=== PATIENT | male | born 1950 | race Caucasian/White ===

== ENCOUNTER → 2017-01-03 | Day surgery (SDC) | payer OTHER, MEDICARE ==
[2016-12-21 11:39] VITALS: Ht 182.9 cm; Wt 134.1 kg
[~2017-01-03] VITALS: Ht 182.9 cm; Wt 134.1 kg
[~2017-01-03] MED LIST: AMLO-110 PO; APIX1TAB3 PO; ASPCH81X PO; ATOR-24 PO; B COCAP10 PO; CITA10TA8 PO; CITA20TA4 PO; CITA20TA9 PO; COEN1CAP7 PO; FERR1TAB13 PO; LIDOCAINE HCL 2% 2 ML VIAL (20MG/ML) ONE; MULT-845 PO; MULTCAP7 PO; NTRGSL/4 UT; OMEG12006 PO; PLAVIX75 PO; PROPOFOL IV EMULSION 10 MG/ML 20 ML VIAL IV ONE; PSYL48.59 PO; SAW PALMETTO PO; [UNRECOGNIZED DRUG - OTHER] PO
--- NOTE | 2017-01-03 13:05 | Endo History and Physical ---
History & Physical Date of Service: Jan 03, 2017. Chief Complaint: 2yr f/u colon CA Referring Physician: DR. ROSE History of Present Illness For flex sig Past Surgical History Hx Cardiac Surgery: Yes (CARDIAC ABLATION, 3 HEART CATH-3 STENTS PLACED) Hx Internal Defibrillator: No Hx Pacemaker: No Hx Abdominal Surgery: Yes (VENTRAL HERNIA REPAIR, TIFFANY) Hx of Implantable Prosthesis: No Hx Post-Op Nausea and Vomiting: No Hx Cancer Surgery: Yes (COLON RESECTION) Hx Thoracic Surgery: No Hx Orthopedic: Yes (RT/LEFT CTR, RT/LEFT ULNAR NERVE SX, RT RCR, LEFT KNEE SX) Hx Urinary Tract Surgery: No Family History Colon CA, Polyp Social History Smoking Status: Former Smoker Hx Substance Use: No Hx Alcohol Use: Yes (RARELY) Allergies Coded Allergies: Penicillins (Verified Allergy, Unknown, FACIAL SWELLING, 12/21/16) Sulfa Antibiotics (Verified Allergy, Unknown, FACIAL SWELLING, 12/21/16) Current Medications Reported Home Medications Medications Dose Route/Sig Max Daily Dose Days Date Category Metamucil (Psyllium) 48.57 % Pow 1 Dose PO BID 12/21/16 Reported Super B With C (B Complex W/ C) 1 Cap Cap 0.5 Cap PO BID 12/21/16 Reported [Juice Gummies] 2 Dose PO BID 12/21/16 Reported Eye Vitamins (Multiple Vitamins W/ Minerals) 1 Cap Cap 1 Cap PO QAM 12/21/16 Reported [Saw [place]] 320 Mg PO QAM 12/21/16 Reported [place] 3 ([place]-3 Fatty Acids) 1 Cap Cap 1,000 Mg PO QAM 12/21/16 Reported Nitrostat (Nitroglycerin) 0.4 Mg Tab 0.4 Mg UT PRN 12/21/16 Reported Centrum Silver Adult 50+ (Multiple Vitamins W/ Minerals) 1 Tab Tab 0.5 Tab PO BID 12/21/16 Reported Coq10 (Coenzyme Q10 (Ubidecarenone)) 200 Mg Cap 1 Cap PO QAM 12/21/16 Reported Plavix (Clopidogrel Bisulfate) 75 Mg Tab 1 Tab PO QAM 90 12/21/16 Reported Citalopram Hydrobromide 20 Mg Tab 30 Mg PO QPM 90 12/21/16 Reported Lipitor (Atorvastatin Calcium) 40 Mg Tab 60 Mg PO QPM 12/21/16 Reported Aspirin Chewable (Aspirin) 81 Mg Chew 81 Mg PO QAM 12/21/16 Reported Eliquis (Apixaban) 5 Mg Tab 5 Mg PO BID 12/21/16 Reported Norvasc (Amlodipine Besylate) 5 Mg Tab 5 Mg PO QAM 12/21/16 Reported Vital Signs Weight (Kilograms): 134.09 Height (Feet): 6 Height (Inches): 0 Date Time Temp Pulse Resp B/P Pulse Ox O2 Delivery O2 Flow Rate FiO2 01/03/17 12:47 36.8 52 20 156/75 95 Room Air Physical Exam General Appearance: WD/WN Respiratory/Chest: Respiratory effort: no dyspnea Cardiovascular: Apical Impulse: pertinent finding (s/p stent) Abdomen: Bowel Sounds: pertinent finding (scars) Assessment and Plan Hx colon cancer for flex sig
--- NOTE | 2017-01-03 13:30 | Discharge Instructions ---
Endoscopy Patient Instructions Date / Procedure(s) Performed Jan 03, 2017. Flex Sig Allergy Information Coded Allergies: Penicillins (Verified Allergy, Unknown, FACIAL SWELLING, 12/21/16) Sulfa Antibiotics (Verified Allergy, Unknown, FACIAL SWELLING, 12/21/16) Discharge Date / Findings Jan 03, 2017. rectal polyps, granulation tissue at the anastomosis Medication Instructions Stopped Medication(s): plavix eliquis aspirin Restart Stopped Medication(s): resume meds Reported Home Medications Medications Dose Route/Sig Max Daily Dose Days Date Category Metamucil (Psyllium) 48.57 % Pow 1 Dose PO BID 12/21/16 Reported Super B With C (B Complex W/ C) 1 Cap Cap 0.5 Cap PO BID 12/21/16 Reported [Juice Gummies] 2 Dose PO BID 12/21/16 Reported Eye Vitamins (Multiple Vitamins W/ Minerals) 1 Cap Cap 1 Cap PO QAM 12/21/16 Reported [Saw [place]] 320 Mg PO QAM 12/21/16 Reported [place] 3 ([place]-3 Fatty Acids) 1 Cap Cap 1,000 Mg PO QAM 12/21/16 Reported Nitrostat (Nitroglycerin) 0.4 Mg Tab 0.4 Mg UT PRN 12/21/16 Reported Centrum Silver Adult 50+ (Multiple Vitamins W/ Minerals) 1 Tab Tab 0.5 Tab PO BID 12/21/16 Reported Coq10 (Coenzyme Q10 (Ubidecarenone)) 200 Mg Cap 1 Cap PO QAM 12/21/16 Reported Plavix (Clopidogrel Bisulfate) 75 Mg Tab 1 Tab PO QAM 90 12/21/16 Reported Citalopram Hydrobromide 20 Mg Tab 30 Mg PO QPM 90 12/21/16 Reported Lipitor (Atorvastatin Calcium) 40 Mg Tab 60 Mg PO QPM 12/21/16 Reported Aspirin Chewable (Aspirin) 81 Mg Chew 81 Mg PO QAM 12/21/16 Reported Eliquis (Apixaban) 5 Mg Tab 5 Mg PO BID 12/21/16 Reported Norvasc (Amlodipine Besylate) 5 Mg Tab 5 Mg PO QAM 12/21/16 Reported Provider Instructions Activity Restrictions - No exercising or heavy lifting for 24 hours. - Do not drink alcohol the day of the procedure. - Do not drive a car or operate machinery until the day after the procedure. - Do not make any important decisions or sign important papers in 24 hours after the procedure. Following Day: - Return to full activity which may include returning to work/school. Diet Start your diet with liquids and light foods (jello, soup, juice, toast). Then eat your usual diet if not nauseated. Treatment For Common After Affects For mild abdominal pain, bloating, or excessive gas: - Rest - Eat lightly - Lie on right side Follow-Up Information Follow-up with DR. ROSE as scheduled Anesthesia Information What You Should Know You have had a procedure that required some medicine to reduce anxiety and discomfort. This treatment is called moderate sedation. After receiving the treatment, you may be sleepy, but you will be able to breathe on your own. The effects of the treatment may last for several hours. Follow these instructions along with Activity/Diet recommendations noted above: * Do NOT do anything where dizziness or clumsiness would be dangerous. * Rest quietly at home today, then you can be up and about tomorrow. * Have a responsible person stay with you the rest of today. * You may have had an I.V. today. If so, you may take the dressing off later today. Recommendations Call your doctor if: * Trouble breathing * Continuous vomiting for more than 24 hours * Temperature above 101 degrees * Severe abdominal pain or bloating * Pain not relieved by pain medicine ordered * There is increased drainage or redness from any incision * A large amount of rectal bleeding greater than 2-3 tablespoons. (If you had a polyp/s removed or have hemorrhoids, a small amount of blood - from the rectum is to be expected.) * You have any unanswered questions or concerns. IN THE EVENT OF A SERIOUS EMERGENCY, GO TO THE NEAREST EMERGENCY ROOM Your discharge instructions were prepared by provider Misael Rosado. Patient Instructions Signature Page Georges Estuardo Patient (or Guardian) Signature/Date: I have read and understand the instructions given to me by my caregivers. Caregiver/RN/Doctor Signature/Date: The above-named patient and/or guardian has received patient instructions on this date. + Original Patient Signature Page (only) stays with chart. Please make copy for patient.
--- NOTE | 2017-01-03 13:43 | GI REPORT ---
Procedure Date: 01/03/2017 12:50 PM Procedure: Colonoscopy Indications: Personal history of malignant neoplasm of the colon, Personal history of colonic polyps Medicines: Propofol total dose 230 mg IV, Lidocaine 40 mg IV Complications: No immediate complications. Estimated Blood Loss: Estimated blood loss: none. Procedure: Pre-Anesthesia Assessment: - Prior to the procedure, a History and Physical was performed, and patient medications, allergies and sensitivities were reviewed. The patient's tolerance of previous anesthesia was reviewed. - The risks and benefits of the procedure and the sedation options and risks were discussed with the patient. All questions were answered and informed consent was obtained. After I obtained informed consent, the scope was passed under direct vision. Throughout the procedure, the patient's blood pressure, pulse, and oxygen saturations were monitored continuously. The scope was introduced through the anus and advanced to the ileocolonic anastomosis. The colonoscopy was performed without difficulty. The patient tolerated the procedure well. The quality of the bowel preparation was excellent. Findings: A 4 mm polyp was found in the rectum. The polyp was sessile. The polyp was removed with a hot snare. Resection and retrieval were complete. Estimated blood loss: none. A 5 mm polyp was found in the rectum. The polyp was sessile. The polyp was removed with a hot snare. Resection and retrieval were complete. Estimated blood loss: none. A 5 mm polyp was found in the rectum. The polyp was sessile. The polyp was removed with a hot snare. Resection and retrieval were complete. Estimated blood loss: none. Two sessile polyps were found in the rectum. The polyps were 4 to 5 mm in size. These polyps were removed with a hot snare. Resection and retrieval were complete. Estimated blood loss: none. A 8 mm polyp was found in the rectum. The polyp was sessile. The polyp was removed with a hot snare. Resection and retrieval were complete. Estimated blood loss: none. A 3 mm polypoid lesion consistant with granulation tissue was found at the anastomosis. The lesion was semi-sessile. No bleeding was present. Impression: - One 4 mm polyp in the rectum, removed with a hot snare. Resected and retrieved. - One 5 mm polyp in the rectum, removed with a hot snare. Resected and retrieved. - One 5 mm polyp in the rectum, removed with a hot snare. Resected and retrieved. - Two 4 to 5 mm polyps in the rectum, removed with a hot snare. Resected and retrieved. - One 8 mm polyp in the rectum, removed with a hot snare. Resected and retrieved. - Benign polypoid lesion at the colonic anastomosis. Recommendation: - Discharge patient to home (ambulatory). - Continue present medications. - Await pathology results. - Return to primary care physician PRN. Misael Rosado M.D. Misael Rosado MD 01/03/2017 1:43:11 PM This report has been signed electronically. Note Initiated On: 01/03/2017 12:50 PM I attest to the content of the Intraoperative Record and orders documented therein, exceptions below
--- NOTE | 2017-01-03 13:53 | Anesthesiology Progress Note ---
Anesthesia Post Op Note Date & Time Jan 03, 2017 at 13:53 Vital Signs Pain Intensity: 0 Vital Signs Past 12 Hours Date Time Temp Pulse Resp B/P Pulse Ox O2 Delivery O2 Flow Rate FiO2 01/03/17 13:50 49 18 147/75 97 Room Air 01/03/17 13:35 52 16 157/76 97 Room Air 01/03/17 12:47 36.8 52 20 156/75 95 Room Air Notes Mental Status: alert / awake / arousable, participated in evaluation Pt Amnestic to Procedure: Yes Nausea / Vomiting: adequately controlled Pain: adequately controlled Airway Patency, RR, SpO2: stable & adequate BP & HR: stable & adequate Hydration State: stable & adequate Anesthetic Complications: no major complications apparent Pt doing well.
[2017-01-03 14:05] VITALS: BP 160/90; PULSE 50; O2SAT 97
== END | disposition home or self-care (01) ==
LOC: C.GI 12:12
PROVIDERS: ATTEND Internal Medicine Gastroenterology
DX: D12.8 Benign neoplasm of rectum (principal); Z85.00 Personal history of malignant neoplasm of unspecified digestive organ; Z80.0 Family history of malignant neoplasm of digestive organs; Z87.891 Personal history of nicotine dependence; Z86.010 Personal history of colon polyps

== ENCOUNTER → 2017-01-12 | Day surgery (SDC) | payer OTHER, MEDICARE ==
[2017-01-11 11:07] VITALS: BMI 40.0
[~2017-01-12] VITALS: Ht 182.9 cm; Wt 134.1 kg
[2017-01-12 14:40] VITALS: Ht 182.9 cm; Wt 134.1 kg
[2017-01-12 14:45] VITALS: TEMP 36.5
--- NOTE | 2017-01-12 14:47 | Endo History and Physical ---
History & Physical Date of Service: Jan 12, 2017. Chief Complaint: Blood in stools Referring Physician: no physician assigned History of Present Illness For Flex sig Past Surgical History Hx Cardiac Surgery: Yes (CARDIAC ABLATION, 3 HEART CATH-3 STENTS PLACED) Hx Internal Defibrillator: No Hx Pacemaker: No Hx Abdominal Surgery: Yes (VENTRAL HERNIA REPAIR, TIFFANY) Hx Post-Op Nausea and Vomiting: No Hx Cancer Surgery: Yes (COLON RESECTION) Hx Thoracic Surgery: No Hx Orthopedic: Yes (RT/LEFT CTR, RT/LEFT ULNAR NERVE SX, RT RCR, LEFT KNEE SX) Hx Urinary Tract Surgery: No Family History Colon CA, Polyp Social History Smoking Status: Former Smoker Hx Substance Use: No Hx Alcohol Use: Yes (RARELY) Allergies Coded Allergies: Penicillins (Verified Allergy, Unknown, FACIAL SWELLING, 01/11/17) Sulfa Antibiotics (Verified Allergy, Unknown, FACIAL SWELLING, 01/11/17) Current Medications Reported Home Medications Medications Dose Route/Sig Max Daily Dose Days Date Category Metamucil (Psyllium) 48.57 % Pow 1 Dose PO BID 12/21/16 Reported Super B With C (B Complex W/ C) 1 Cap Cap 0.5 Cap PO BID 12/21/16 Reported [Juice Gummies] 2 Dose PO BID 12/21/16 Reported Eye Vitamins (Multiple Vitamins W/ Minerals) 1 Cap Cap 1 Cap PO QAM 12/21/16 Reported [Saw [place]] 320 Mg PO QAM 12/21/16 Reported [place] 3 ([place]-3 Fatty Acids) 1 Cap Cap 1,000 Mg PO QAM 12/21/16 Reported Nitrostat (Nitroglycerin) 0.4 Mg Tab 0.4 Mg UT PRN 12/21/16 Reported Centrum Silver Adult 50+ (Multiple Vitamins W/ Minerals) 1 Tab Tab 0.5 Tab PO BID 12/21/16 Reported Coq10 (Coenzyme Q10 (Ubidecarenone)) 200 Mg Cap 1 Cap PO QAM 12/21/16 Reported Plavix (Clopidogrel Bisulfate) 75 Mg Tab 1 Tab PO QAM 90 12/21/16 Reported Citalopram Hydrobromide 20 Mg Tab 30 Mg PO QPM 90 12/21/16 Reported Lipitor (Atorvastatin Calcium) 40 Mg Tab 60 Mg PO QPM 12/21/16 Reported Aspirin Chewable (Aspirin) 81 Mg Chew 81 Mg PO QAM 12/21/16 Reported Eliquis (Apixaban) 5 Mg Tab 5 Mg PO BID 12/21/16 Reported Norvasc (Amlodipine Besylate) 5 Mg Tab 5 Mg PO QAM 12/21/16 Reported Vital Signs Weight (Kilograms): 134.09 Height (Feet): 6 Height (Inches): 0 Physical Exam General Appearance: WD/WN Respiratory/Chest: Respiratory effort: no dyspnea Cardiovascular: Heart Auscultation: RRR Abdomen: Inspection & Palpation: soft Assessment and Plan post polypectomy bleed for flex sig
--- NOTE | 2017-01-12 15:15 | Discharge Instructions ---
Endoscopy Patient Instructions Date / Procedure(s) Performed Jan 12, 2017. Colonoscopy, Flex Sig Allergy Information Coded Allergies: Penicillins (Verified Allergy, Unknown, FACIAL SWELLING, 01/11/17) Sulfa Antibiotics (Verified Allergy, Unknown, FACIAL SWELLING, 01/11/17) Discharge Date / Findings Jan 12, 2017. polyp sites clipped Medication Instructions Restart Stopped Medication(s): resume meds Reported Home Medications Medications Dose Route/Sig Max Daily Dose Days Date Category Metamucil (Psyllium) 48.57 % Pow 1 Dose PO BID 12/21/16 Reported Super B With C (B Complex W/ C) 1 Cap Cap 0.5 Cap PO BID 12/21/16 Reported [Juice Gummies] 2 Dose PO BID 12/21/16 Reported Eye Vitamins (Multiple Vitamins W/ Minerals) 1 Cap Cap 1 Cap PO QAM 12/21/16 Reported [Saw [place]] 320 Mg PO QAM 12/21/16 Reported [place] 3 ([place]-3 Fatty Acids) 1 Cap Cap 1,000 Mg PO QAM 12/21/16 Reported Nitrostat (Nitroglycerin) 0.4 Mg Tab 0.4 Mg UT PRN 12/21/16 Reported Centrum Silver Adult 50+ (Multiple Vitamins W/ Minerals) 1 Tab Tab 0.5 Tab PO BID 12/21/16 Reported Coq10 (Coenzyme Q10 (Ubidecarenone)) 200 Mg Cap 1 Cap PO QAM 12/21/16 Reported Plavix (Clopidogrel Bisulfate) 75 Mg Tab 1 Tab PO QAM 90 12/21/16 Reported Citalopram Hydrobromide 20 Mg Tab 30 Mg PO QPM 90 12/21/16 Reported Lipitor (Atorvastatin Calcium) 40 Mg Tab 60 Mg PO QPM 12/21/16 Reported Aspirin Chewable (Aspirin) 81 Mg Chew 81 Mg PO QAM 12/21/16 Reported Eliquis (Apixaban) 5 Mg Tab 5 Mg PO BID 12/21/16 Reported Norvasc (Amlodipine Besylate) 5 Mg Tab 5 Mg PO QAM 12/21/16 Reported Provider Instructions Activity Restrictions - No exercising or heavy lifting for 24 hours. - Do not drink alcohol the day of the procedure. - Do not drive a car or operate machinery until the day after the procedure. - Do not make any important decisions or sign important papers in 24 hours after the procedure. Following Day: - Return to full activity which may include returning to work/school. Diet Start your diet with liquids and light foods (jello, soup, juice, toast). Then eat your usual diet if not nauseated. Treatment For Common After Affects For mild abdominal pain, bloating, or excessive gas: - Rest - Eat lightly - Lie on right side Follow-Up Information Follow-up with no physician assigned as scheduled Anesthesia Information What You Should Know You have had a procedure that required some medicine to reduce anxiety and discomfort. This treatment is called moderate sedation. After receiving the treatment, you may be sleepy, but you will be able to breathe on your own. The effects of the treatment may last for several hours. Follow these instructions along with Activity/Diet recommendations noted above: * Do NOT do anything where dizziness or clumsiness would be dangerous. * Rest quietly at home today, then you can be up and about tomorrow. * Have a responsible person stay with you the rest of today. * You may have had an I.V. today. If so, you may take the dressing off later today. Recommendations Call your doctor if: * Trouble breathing * Continuous vomiting for more than 24 hours * Temperature above 101 degrees * Severe abdominal pain or bloating * Pain not relieved by pain medicine ordered * There is increased drainage or redness from any incision * A large amount of rectal bleeding greater than 2-3 tablespoons. (If you had a polyp/s removed or have hemorrhoids, a small amount of blood - from the rectum is to be expected.) * You have any unanswered questions or concerns. IN THE EVENT OF A SERIOUS EMERGENCY, GO TO THE NEAREST EMERGENCY ROOM Your discharge instructions were prepared by provider Misael Rosado. Patient Instructions Signature Page Georges Marte Patient (or Guardian) Signature/Date: I have read and understand the instructions given to me by my caregivers. Caregiver/RN/Doctor Signature/Date: The above-named patient and/or guardian has received patient instructions on this date. + Original Patient Signature Page (only) stays with chart. Please make copy for patient.
--- NOTE | 2017-01-12 15:23 | GI REPORT ---
Procedure Date: 01/12/2017 2:57 PM Procedure: Colonoscopy Indications: Rectal bleeding, Treatment of bleeding from polypectomy site Medicines: Propofol total dose 340 mg IV, Lidocaine 40 mg IV Complications: No immediate complications. Estimated Blood Loss: Estimated blood loss: none. Procedure: Pre-Anesthesia Assessment: - Prior to the procedure, a History and Physical was performed, and patient medications, allergies and sensitivities were reviewed. The patient's tolerance of previous anesthesia was reviewed. - The risks and benefits of the procedure and the sedation options and risks were discussed with the patient. All questions were answered and informed consent was obtained. After I obtained informed consent, the scope was passed under direct vision. Throughout the procedure, the patient's blood pressure, pulse, and oxygen saturations were monitored continuously. The scope was introduced through the anus and advanced to the ileocolonic anastomosis. The colonoscopy was performed without difficulty. The patient tolerated the procedure well. The quality of the bowel preparation was excellent. Findings: Five five mm ulcers were found in the rectum. No bleeding was present. No stigmata of recent bleeding were seen. To prevent bleeding after the polypectomy, five hemostatic clips were successfully placed (MR conditional). There was no bleeding during, and at the end, of the procedure. Estimated blood loss: none. There was evidence of a prior end-to-side ileo-colonic anastomosis in the recto-sigmoid colon. This was patent. The anastomosis was traversed. Impression: - Five ulcers in the rectum. Clips (MR conditional) were placed. - Patent end-to-side ileo-colonic anastomosis. - No specimens collected. Recommendation: - Discharge patient to home (ambulatory). - Continue present medications. - Return to primary care physician PRN. - Repeat colonoscopy in 1 year for surveillance. Misael Rosado M.D. Misael Rosado MD 01/12/2017 3:22:23 PM This report has been signed electronically. Note Initiated On: 01/12/2017 2:57 PM I attest to the content of the Intraoperative Record and orders documented therein, exceptions below
--- NOTE | 2017-01-12 15:33 | Anesthesiology Progress Note ---
Anesthesia Post Op Note Date & Time Jan 12, 2017 at 15:32 Vital Signs Pain Intensity: 0 Vital Signs Past 12 Hours Date Time Temp Pulse Resp B/P Pulse Ox O2 Delivery O2 Flow Rate FiO2 01/12/17 15:19 92 16 105/67 94 Room Air 01/12/17 14:45 36.5 53 18 145/63 18 Room Air Notes Mental Status: alert / awake / arousable, participated in evaluation Pt Amnestic to Procedure: Yes Nausea / Vomiting: adequately controlled Pain: adequately controlled Airway Patency, RR, SpO2: stable & adequate BP & HR: stable & adequate Hydration State: stable & adequate Anesthetic Complications: no major complications apparent
[2017-01-12 15:49] VITALS: BP 146/77; PULSE 50; O2SAT 97
== END | disposition home or self-care (01) ==
LOC: C.GI 13:54
PROVIDERS: ATTEND Internal Medicine Gastroenterology
DX: K62.6 Ulcer of anus and rectum (principal); K62.5 Hemorrhage of anus and rectum; Z87.891 Personal history of nicotine dependence; Z80.0 Family history of malignant neoplasm of digestive organs

== ENCOUNTER → 2017-04-11 | Day surgery (SDC) | payer OTHER, MEDICARE ==
[2017-04-01 08:33] VITALS: BMI 41.0
[~2017-04-11] VITALS: Ht 182.9 cm; Wt 136.4 kg
[~2017-04-11] MED LIST changes: -CITA20TA4 PO; +MIDAZOLAM HCL 1 MG/ML 2ML VIAL ONE
--- NOTE | 2017-04-11 14:13 | Endo History and Physical ---
History & Physical Date of Service: Apr 11, 2017. Chief Complaint: hx of polyps Referring Physician: Dr. Marie History of Present Illness For flexible sigmoidoscopy Past Surgical History Hx Cardiac Surgery: Yes (CARDIAC ABLATION, 3 HEART CATH-3 STENTS PLACED-LAST ONE 05/2016) Hx Internal Defibrillator: No Hx Pacemaker: No Hx Abdominal Surgery: Yes (VENTRAL HERNIA REPAIR, TFIFANY) Hx of Implantable Prosthesis: No Hx Post-Op Nausea and Vomiting: No Hx Cancer Surgery: Yes (COLON RESECTION) Hx Thoracic Surgery: No Hx Orthopedic: Yes (RT/LEFT CTR, RT/LEFT ULNAR NERVE SX, RT RCR, LEFT KNEE SX) Hx Urinary Tract Surgery: No Family History Colon CA, Polyp Social History Smoking Status: Former Smoker Hx Substance Use: No Hx Alcohol Use: Yes (RARELY) Allergies Coded Allergies: Penicillins (Verified Allergy, Unknown, FACIAL SWELLING, 04/01/17) Sulfa Antibiotics (Verified Allergy, Unknown, FACIAL SWELLING, 04/01/17) Current Medications Reported Home Medications Medications Dose Route/Sig Max Daily Dose Days Date Category Celexa (Citalopram Hydrobromide) 20 Mg Tab 20 Mg PO QPM 04/01/17 Reported Celexa (Citalopram Hydrobromide) 10 Mg Tab 10 Mg PO QAM 04/01/17 Reported Kp Ferrous Sulfate (Ferrous Sulfate) 325 Mg Tab 1 Tab PO QPM 30 04/01/17 Reported Metamucil (Psyllium) 48.57 % Pow 1 Dose PO BID 12/21/16 Reported Super B With C (B Complex W/ C) 1 Cap Cap 0.5 Cap PO BID 12/21/16 Reported [Juice Gummies] 2 Dose PO BID 12/21/16 Reported Eye Vitamins (Multiple Vitamins W/ Minerals) 1 Cap Cap 1 Cap PO QAM 12/21/16 Reported [Saw [place]] 320 Mg PO QAM 12/21/16 Reported [place] 3 ([place]-3 Fatty Acids) 1 Cap Cap 1,000 Mg PO QAM 12/21/16 Reported Nitrostat (Nitroglycerin) 0.4 Mg Tab 0.4 Mg UT PRN 12/21/16 Reported Centrum Silver Adult 50+ (Multiple Vitamins W/ Minerals) 1 Tab Tab 0.5 Tab PO BID 12/21/16 Reported Coq10 (Coenzyme Q10 (Ubidecarenone)) 200 Mg Cap 1 Cap PO QAM 12/21/16 Reported Plavix (Clopidogrel Bisulfate) 75 Mg Tab 1 Tab PO QAM 90 12/21/16 Reported Lipitor (Atorvastatin Calcium) 40 Mg Tab 60 Mg PO QPM 12/21/16 Reported Aspirin Chewable (Aspirin) 81 Mg Chew 81 Mg PO QAM 12/21/16 Reported Eliquis (Apixaban) 5 Mg Tab 5 Mg PO BID 12/21/16 Reported Norvasc (Amlodipine Besylate) 5 Mg Tab 5 Mg PO QAM 12/21/16 Reported Vital Signs Weight (Kilograms): 136.36 Height (Feet): 6 Height (Inches): 0 Physical Exam General Appearance: WD/WN Respiratory/Chest: Respiratory effort: no dyspnea Cardiovascular: Heart Auscultation: RRR Abdomen: Bowel Sounds: pertinent finding (scar) Inspection & Palpation: soft Assessment and Plan hx of polyps, heme positive stool for flex sig
[2017-04-11 14:16] VITALS: Ht 182.9 cm; Wt 136.4 kg
[2017-04-11 14:24] VITALS: TEMP 36.8
--- NOTE | 2017-04-11 14:53 | Discharge Instructions ---
Endoscopy Patient Instructions Date / Procedure(s) Performed Apr 11, 2017. Flex Sig Allergy Information Coded Allergies: Penicillins (Verified Allergy, Unknown, FACIAL SWELLING, 04/01/17) Sulfa Antibiotics (Verified Allergy, Unknown, FACIAL SWELLING, 04/01/17) Discharge Date / Findings Apr 11, 2017. Granulation tissue cauterized, retained hemoclips Medication Instructions Restart Stopped Medication(s): resume meds Reported Home Medications Medications Dose Route/Sig Max Daily Dose Days Date Category Celexa (Citalopram Hydrobromide) 20 Mg Tab 20 Mg PO QPM 04/01/17 Reported Celexa (Citalopram Hydrobromide) 10 Mg Tab 10 Mg PO QAM 04/01/17 Reported Kp Ferrous Sulfate (Ferrous Sulfate) 325 Mg Tab 1 Tab PO QPM 30 04/01/17 Reported Metamucil (Psyllium) 48.57 % Pow 1 Dose PO BID 12/21/16 Reported Super B With C (B Complex W/ C) 1 Cap Cap 0.5 Cap PO BID 12/21/16 Reported [Juice Gummies] 2 Dose PO BID 12/21/16 Reported Eye Vitamins (Multiple Vitamins W/ Minerals) 1 Cap Cap 1 Cap PO QAM 12/21/16 Reported [Saw Doucette] 320 Mg PO QAM 12/21/16 Reported [place] 3 ([place]-3 Fatty Acids) 1 Cap Cap 1,000 Mg PO QAM 12/21/16 Reported Nitrostat (Nitroglycerin) 0.4 Mg Tab 0.4 Mg UT PRN 12/21/16 Reported Centrum Silver Adult 50+ (Multiple Vitamins W/ Minerals) 1 Tab Tab 0.5 Tab PO BID 12/21/16 Reported Coq10 (Coenzyme Q10 (Ubidecarenone)) 200 Mg Cap 1 Cap PO QAM 12/21/16 Reported Plavix (Clopidogrel Bisulfate) 75 Mg Tab 1 Tab PO QAM 90 12/21/16 Reported Lipitor (Atorvastatin Calcium) 40 Mg Tab 60 Mg PO QPM 12/21/16 Reported Aspirin Chewable (Aspirin) 81 Mg Chew 81 Mg PO QAM 12/21/16 Reported Eliquis (Apixaban) 5 Mg Tab 5 Mg PO BID 12/21/16 Reported Norvasc (Amlodipine Besylate) 5 Mg Tab 5 Mg PO QAM 12/21/16 Reported Provider Instructions Activity Restrictions - No exercising or heavy lifting for 24 hours. - Do not drink alcohol the day of the procedure. - Do not drive a car or operate machinery until the day after the procedure. - Do not make any important decisions or sign important papers in 24 hours after the procedure. Following Day: - Return to full activity which may include returning to work/school. Diet Start your diet with liquids and light foods (jello, soup, juice, toast). Then eat your usual diet if not nauseated. Treatment For Common After Affects For mild abdominal pain, bloating, or excessive gas: - Rest - Eat lightly - Lie on right side Follow-Up Information Follow-up with as scheduled Anesthesia Information What You Should Know You have had a procedure that required some medicine to reduce anxiety and discomfort. This treatment is called moderate sedation. After receiving the treatment, you may be sleepy, but you will be able to breathe on your own. The effects of the treatment may last for several hours. Follow these instructions along with Activity/Diet recommendations noted above: * Do NOT do anything where dizziness or clumsiness would be dangerous. * Rest quietly at home today, then you can be up and about tomorrow. * Have a responsible person stay with you the rest of today. * You may have had an I.V. today. If so, you may take the dressing off later today. Recommendations Call your doctor if: * Trouble breathing * Continuous vomiting for more than 24 hours * Temperature above 101 degrees * Severe abdominal pain or bloating * Pain not relieved by pain medicine ordered * There is increased drainage or redness from any incision * A large amount of rectal bleeding greater than 2-3 tablespoons. (If you had a polyp/s removed or have hemorrhoids, a small amount of blood - from the rectum is to be expected.) * You have any unanswered questions or concerns. IN THE EVENT OF A SERIOUS EMERGENCY, GO TO THE NEAREST EMERGENCY ROOM Your discharge instructions were prepared by provider Misael Rosado. Patient Instructions Signature Page Georges Estuardo Patient (or Guardian) Signature/Date: I have read and understand the instructions given to me by my caregivers. Caregiver/RN/Doctor Signature/Date: The above-named patient and/or guardian has received patient instructions on this date. + Original Patient Signature Page (only) stays with chart. Please make copy for patient.
--- NOTE | 2017-04-11 15:01 | GI REPORT ---
Procedure Date: 04/11/2017 2:14 PM Procedure: Flexible Sigmoidoscopy Indications: High risk colon cancer surveillance: Personal history of colonic polyps, Incidental - Gastrointestinal occult blood loss Medicines: Midazolam 2 mg IV, Propofol total dose 180 mg IV, Lidocaine 40 mg IV Complications: No immediate complications. Procedure: Pre-Anesthesia Assessment: - Prior to the procedure, a History and Physical was performed, and patient medications, allergies and sensitivities were reviewed. The patient's tolerance of previous anesthesia was reviewed. - The risks and benefits of the procedure and the sedation options and risks were discussed with the patient. All questions were answered and informed consent was obtained. After obtaining informed consent, the endoscope was passed under direct vision. Throughout the procedure, the patient's blood pressure, pulse, and oxygen saturations were monitored continuously. The scope was introduced through the anus and advanced to the ileo-rectal anastomosis. The flexible sigmoidoscopy was accomplished without difficulty. The patient tolerated the procedure well. The quality of the bowel preparation was good. Findings: There was evidence of a prior [id number] ileo-colonic anastomosis in the recto-sigmoid colon. This was patent and was characterized by ulceration. The anastomosis was traversed. Coagulation for bleeding prevention using argon plasma at 0.3 liters/minute and 20 sorensen was successful. Estimated blood loss: none. Two retained hemoclips. Recommendation: - Discharge patient to home (ambulatory). - Continue present medications. - Return to primary care physician PRN. Misael Rosado M.D. Misael Rosado MD 04/11/2017 3:00:04 PM This report has been signed electronically. Note Initiated On: 04/11/2017 2:14 PM I attest to the content of the Intraoperative Record and orders documented therein, exceptions below
--- NOTE | 2017-04-11 15:19 | Anesthesiology Progress Note ---
Anesthesia Post Op Note Date & Time Apr 11, 2017 at 15:18 Vital Signs Pain Intensity: 0 Vital Signs Past 12 Hours Date Time Temp Pulse Resp B/P (MAP) Pulse Ox O2 Delivery O2 Flow Rate FiO2 04/11/17 15:12 58 18 133/58 (83) 97 Room Air 04/11/17 14:57 59 12 140/61 (87) 97 Room Air 04/11/17 14:24 36.8 63 18 147/54 (85) 95 Room Air Notes Mental Status: alert / awake / arousable, participated in evaluation Pt Amnestic to Procedure: Yes Nausea / Vomiting: adequately controlled Pain: adequately controlled Airway Patency, RR, SpO2: stable & adequate BP & HR: stable & adequate Hydration State: stable & adequate Anesthetic Complications: no major complications apparent
[2017-04-11 15:27] VITALS: BP 150/59; PULSE 52; O2SAT 97
== END | disposition home or self-care (01) ==
LOC: C.GI 13:44
PROVIDERS: ATTEND Internal Medicine Gastroenterology
DX: Z12.11 Encounter for screening for malignant neoplasm of colon (principal); Z86.010 Personal history of colon polyps; Z87.891 Personal history of nicotine dependence; Z90.49 Acquired absence of other specified parts of digestive tract; Z80.0 Family history of malignant neoplasm of digestive organs; Z83.71 Family history of colonic polyps

== ENCOUNTER → 2017-07-20 | Day surgery (SDC) | payer OTHER, MEDICARE ==
[2017-07-12 12:01] VITALS: BMI 39.0
[~2017-07-20] VITALS: Ht 182.9 cm; Wt 131.8 kg
[~2017-07-20] MED LIST changes: -CITA10TA8 PO; -MIDAZOLAM HCL 1 MG/ML 2ML VIAL ONE; -PLAVIX75 PO
[2017-07-20 13:04] VITALS: Ht 182.9 cm; Wt 131.8 kg
--- NOTE | 2017-07-20 13:39 | Endo History and Physical ---
History & Physical Date of Service: Jul 20, 2017. Chief Complaint: Hx adenometous polyposis Referring Physician: Dr. Torrez History of Present Illness For flex sig Past Surgical History Hx Cardiac Surgery: Yes (CARDIAC ABLATION, 3 HEART CATH-3 STENTS PLACED-LAST ONE 05/2016) Hx Internal Defibrillator: No Hx Pacemaker: No Hx Abdominal Surgery: Yes (VENTRAL HERNIA REPAIR, TIFFANY) Hx of Implantable Prosthesis: No Hx Post-Op Nausea and Vomiting: No Hx Cancer Surgery: Yes (COLON RESECTION) Hx Thoracic Surgery: No Hx Orthopedic: Yes (RT/LT CTR, RT/LT ULNAR NERVE SX, RT RCR, LT KNEE SX) Hx Urinary Tract Surgery: No Family History Colon CA, Polyp Social History Smoking Status: Former Smoker Hx Substance Use: No Hx Alcohol Use: Yes (RARELY) Allergies Coded Allergies: Penicillins (Verified Allergy, Unknown, FACIAL SWELLING, 07/12/17) Sulfa Antibiotics (Verified Allergy, Unknown, FACIAL SWELLING, 07/12/17) Current Medications Reported Home Medications Medications Dose Route/Sig Max Daily Dose Days Date Category Celexa (Citalopram Hydrobromide) 20 Mg Tab 20 Mg PO QPM 04/01/17 Reported Kp Ferrous Sulfate (Ferrous Sulfate) 325 Mg Tab 1 Tab PO QPM 04/01/17 Reported Metamucil (Psyllium) 48.57 % Pow 1 Dose PO BID 12/21/16 Reported Super B With C (B Complex W/ C) 1 Cap Cap 0.5 Cap PO BID 12/21/16 Reported [Juice Gummies] 2 Dose PO BID 12/21/16 Reported Eye Vitamins (Multiple Vitamins W/ Minerals) 1 Cap Cap 1 Cap PO QAM 12/21/16 Reported [Saw [place]] 320 Mg PO QAM 12/21/16 Reported [place] 3 ([place]-3 Fatty Acids) 1 Cap Cap 1,000 Mg PO QAM 12/21/16 Reported Nitrostat (Nitroglycerin) 0.4 Mg Tab 0.4 Mg UT PRN 12/21/16 Reported Centrum Silver Adult 50+ (Multiple Vitamins W/ Minerals) 1 Tab Tab 0.5 Tab PO BID 12/21/16 Reported Coq10 (Coenzyme Q10 (Ubidecarenone)) 200 Mg Cap 1 Cap PO QAM 12/21/16 Reported Lipitor (Atorvastatin Calcium) 40 Mg Tab 60 Mg PO QPM 12/21/16 Reported Aspirin Chewable (Aspirin) 81 Mg Chew 81 Mg PO QAM 12/21/16 Reported Eliquis (Apixaban) 5 Mg Tab 5 Mg PO BID 12/21/16 Reported Norvasc (Amlodipine Besylate) 5 Mg Tab 5 Mg PO QAM 12/21/16 Reported Vital Signs Weight (Kilograms): 131.82 Height (Feet): 6 Height (Inches): 0 Date Time Temp Pulse Resp B/P (MAP) Pulse Ox O2 Delivery O2 Flow Rate FiO2 07/20/17 13:14 36.8 47 20 147/72 (97) 96 Room Air Physical Exam General Appearance: WD/WN Respiratory/Chest: Respiratory effort: no dyspnea Cardiovascular: Heart Auscultation: RRR Abdomen: Bowel Sounds: pertinent finding (scar) Assessment and Plan Familial polyposis for flex sig
--- NOTE | 2017-07-20 13:59 | Discharge Instructions ---
Endoscopy Patient Instructions Date / Procedure(s) Performed Jul 20, 2017. Flex Sig Allergy Information Coded Allergies: Penicillins (Verified Allergy, Unknown, FACIAL SWELLING, 07/12/17) Sulfa Antibiotics (Verified Allergy, Unknown, FACIAL SWELLING, 07/12/17) Discharge Date / Findings Jul 20, 2017. Retained clips, anastomotic inflammation Medication Instructions Restart Stopped Medication(s): resume meds Reported Home Medications Medications Dose Route/Sig Max Daily Dose Days Date Category Celexa (Citalopram Hydrobromide) 20 Mg Tab 20 Mg PO QPM 04/01/17 Reported Kp Ferrous Sulfate (Ferrous Sulfate) 325 Mg Tab 1 Tab PO QPM 04/01/17 Reported Metamucil (Psyllium) 48.57 % Pow 1 Dose PO BID 12/21/16 Reported Super B With C (B Complex W/ C) 1 Cap Cap 0.5 Cap PO BID 12/21/16 Reported [Juice Gummies] 2 Dose PO BID 12/21/16 Reported Eye Vitamins (Multiple Vitamins W/ Minerals) 1 Cap Cap 1 Cap PO QAM 12/21/16 Reported [Saw Eunice] 320 Mg PO QAM 12/21/16 Reported [place] 3 ([place]-3 Fatty Acids) 1 Cap Cap 1,000 Mg PO QAM 12/21/16 Reported Nitrostat (Nitroglycerin) 0.4 Mg Tab 0.4 Mg UT PRN 12/21/16 Reported Centrum Silver Adult 50+ (Multiple Vitamins W/ Minerals) 1 Tab Tab 0.5 Tab PO BID 12/21/16 Reported Coq10 (Coenzyme Q10 (Ubidecarenone)) 200 Mg Cap 1 Cap PO QAM 12/21/16 Reported Lipitor (Atorvastatin Calcium) 40 Mg Tab 60 Mg PO QPM 12/21/16 Reported Aspirin Chewable (Aspirin) 81 Mg Chew 81 Mg PO QAM 12/21/16 Reported Eliquis (Apixaban) 5 Mg Tab 5 Mg PO BID 12/21/16 Reported Norvasc (Amlodipine Besylate) 5 Mg Tab 5 Mg PO QAM 12/21/16 Reported Provider Instructions Activity Restrictions - No exercising or heavy lifting for 24 hours. - Do not drink alcohol the day of the procedure. - Do not drive a car or operate machinery until the day after the procedure. - Do not make any important decisions or sign important papers in 24 hours after the procedure. Following Day: - Return to full activity which may include returning to work/school. Diet Start your diet with liquids and light foods (jello, soup, juice, toast). Then eat your usual diet if not nauseated. Treatment For Common After Affects For mild abdominal pain, bloating, or excessive gas: - Rest - Eat lightly - Lie on right side Follow-Up Information Follow-up with Dr. Torrez as scheduled Anesthesia Information What You Should Know You have had a procedure that required some medicine to reduce anxiety and discomfort. This treatment is called moderate sedation. After receiving the treatment, you may be sleepy, but you will be able to breathe on your own. The effects of the treatment may last for several hours. Follow these instructions along with Activity/Diet recommendations noted above: * Do NOT do anything where dizziness or clumsiness would be dangerous. * Rest quietly at home today, then you can be up and about tomorrow. * Have a responsible person stay with you the rest of today. * You may have had an I.V. today. If so, you may take the dressing off later today. Recommendations Call your doctor if: * Trouble breathing * Continuous vomiting for more than 24 hours * Temperature above 101 degrees * Severe abdominal pain or bloating * Pain not relieved by pain medicine ordered * There is increased drainage or redness from any incision * A large amount of rectal bleeding greater than 2-3 tablespoons. (If you had a polyp/s removed or have hemorrhoids, a small amount of blood - from the rectum is to be expected.) * You have any unanswered questions or concerns. IN THE EVENT OF A SERIOUS EMERGENCY, GO TO THE NEAREST EMERGENCY ROOM Your discharge instructions were prepared by provider Misael Rosado. Patient Instructions Signature Page Georges Estuardo Patient (or Guardian) Signature/Date: I have read and understand the instructions given to me by my caregivers. Caregiver/RN/Doctor Signature/Date: The above-named patient and/or guardian has received patient instructions on this date. + Original Patient Signature Page (only) stays with chart. Please make copy for patient.
--- NOTE | 2017-07-20 14:08 | GI REPORT ---
Procedure Date: 07/20/2017 1:43 PM Procedure: Flexible Sigmoidoscopy Indications: High risk colon cancer surveillance: Personal history of multiple (3 or more) adenomas Medicines: Propofol total dose 200 mg IV, Lidocaine 40 mg IV Complications: No immediate complications. Estimated Blood Loss: Estimated blood loss: none. Procedure: Pre-Anesthesia Assessment: - Prior to the procedure, a History and Physical was performed, and patient medications, allergies and sensitivities were reviewed. The patient's tolerance of previous anesthesia was reviewed. - The risks and benefits of the procedure and the sedation options and risks were discussed with the patient. All questions were answered and informed consent was obtained. After obtaining informed consent, the endoscope was passed under direct vision. Throughout the procedure, the patient's blood pressure, pulse, and oxygen saturations were monitored continuously. The scope was introduced through the anus and advanced to the ileo-rectal anastomosis. The flexible sigmoidoscopy was accomplished without difficulty. The patient tolerated the procedure well. The quality of the bowel preparation was good. Findings: There was evidence of a prior end-to-side ileo-colonic anastomosis in the proximal sigmoid colon. This was patent and was characterized by inflammation. The anastomosis was traversed. A foreign body ( 3 retained clips)were found in the rectum. Impression: - Patent end-to-side ileo-colonic anastomosis, characterized by inflammation. - Foreign body in the rectum. - No specimens collected. Recommendation: - Continue present medications. - Discharge patient to home (ambulatory). - Repeat flexible sigmoidoscopy in 2 years for surveillance. - Return to primary care physician PRN. Misael Rosado M.D. Misael Rosado MD 07/20/2017 2:08:12 PM This report has been signed electronically. Note Initiated On: 07/20/2017 1:43 PM I attest to the content of the Intraoperative Record and orders documented therein, exceptions below
--- NOTE | 2017-07-20 14:10 | Anesthesiology Progress Note ---
Anesthesia Post Op Note Date & Time Jul 20, 2017 at 14:10 Vital Signs Pain Intensity: 0 Vital Signs Past 12 Hours Date Time Temp Pulse Resp B/P (MAP) Pulse Ox O2 Delivery O2 Flow Rate FiO2 07/20/17 13:14 36.8 47 20 147/72 (97) 96 Room Air Notes Mental Status: alert / awake / arousable, participated in evaluation Pt Amnestic to Procedure: Yes Nausea / Vomiting: adequately controlled Pain: adequately controlled Airway Patency, RR, SpO2: stable & adequate BP & HR: stable & adequate Hydration State: stable & adequate Anesthetic Complications: no major complications apparent
[2017-07-20 14:25] VITALS: BP 133/79; PULSE 49; O2SAT 95
== END | disposition home or self-care (01) ==
LOC: C.GI 12:45
PROVIDERS: ATTEND Internal Medicine Gastroenterology
DX: Z12.11 Encounter for screening for malignant neoplasm of colon (principal); Z86.010 Personal history of colon polyps; Z98.0 Intestinal bypass and anastomosis status; M79.5 Residual foreign body in soft tissue; Z87.891 Personal history of nicotine dependence; Z80.0 Family history of malignant neoplasm of digestive organs; Z79.82 Long term (current) use of aspirin; Z79.899 Other long term (current) drug therapy